=== PATIENT | female | born 1945 | race American Indian/Alaskan Native ===

== ENCOUNTER 2016-12-24 11:17 | Emergency (ER) | payer MEDICARE ==
--- NOTE | 2016-12-24 16:33 | Emergency Department Report ---
ED Back Pain/Injury HPI - General Chief Complaint: Back Pain/Injury Stated Complaint: BACK PAIN Time Seen by Provider: 12/24/16 16:22 Source: patient Limitations: No Limitations - History of Present Illness Initial Comments: Patient here complaining of pain to her lower back on the right side 3 days. She denies any injury. Denies falling. She says she's taken Tylenol at home without any relief. Denies any chest pain, shortness of breath, nausea or vomiting. She says she was seen by her primary care and was advised that she has osteoarthritis. Patient denies any fever or chills. Denies any abdominal pain. Pain is located on the right side of her lower back should she reports pain is achy 10 out of 10 and constant. Denies any urinary burning or urgency but reports urinary frequency. MD Complaint: back pain Onset/Timin -: days(s) Similar Symptoms Previously: Yes Place: home Radiation: flank (rt) Severity: moderate Severity scale (0 -10): 7 Quality: aching Consistency: constant Improves With: none Worsens With: none Context: other (none) Associated Symptoms: denies: confusion, weakness, chest pain, numbness, difficulty walking, cough, difficulty urinating, diaphoresis, incontinence, fever/chills, constipation, headaches, abdominal pain, loss of appetite, malaise , nausea/vomiting, rash, seizure, shortness of breath, syncope Treatments Prior to Arrival: acetaminophen - Related Data Home Medications Medication Instructions Recorded Confirmed Last Taken Aspirin [Aspirin BABY CHEW TAB] 81 mg PO QDAY 07/16/14 02/23/16 02/22/16 81 MG Atorvastatin [Lipitor] 80 mg PO QHS 07/16/14 02/23/16 02/22/16 80 MG Clopidogrel [Plavix] 75 mg PO QDAY 07/16/14 02/23/16 02/22/16 75 MG Lisinopril [Zestril TAB] 20 mg PO QDAY 07/16/14 02/23/16 02/22/16 20 MG Metoprolol [Lopressor TAB] 25 mg PO DAILY 07/16/14 02/23/16 02/22/16 25 MG Previous Rx's Medication Instructions Recorded Last Taken Type Pantoprazole [Protonix TAB] 20 mg PO BID #60 tablet. 02/24/16 Unknown Rx Acetaminophen/Codeine [Tylenol #3] 1 tab PO Q6H PRN #12 tab 12/24/16 Unknown Rx Ciprofloxacin HCl [Ciprofloxacin 500 mg PO Q12H #20 tab 12/24/16 Unknown Rx TAB] Allergies Allergy/AdvReac Type Severity Reaction Status Date / Time erythromycin base Allergy Hives Verified 02/23/16 11:29 [Erythromycin Base] Penicillins Allergy Hives Verified 02/23/16 11:29 ED Review of Systems ROS: Stated complaint: BACK PAIN Other details as noted in HPI Comment: All other systems reviewed and negative Constitutional: denies: chills, fever Respiratory: no symptoms reported Cardiovascular: denies: chest pain, palpitations, edema, syncope Gastrointestinal: denies: abdominal pain, nausea, vomiting Genitourinary: frequency. denies: urgency, dysuria, hematuria, discharge Musculoskeletal: back pain. denies: arthralgia Skin: denies: rash Neurological: denies: headache ED Past Medical Hx - Past Medical History Previous Medical History?: Yes Hx Hypertension: Yes Hx Heart Attack/AMI: No Hx Congestive Heart Failure: No Hx Diabetes: No Hx Arthritis: Yes (generalized) Hx Seizures: Yes Hx COPD: No Additional medical history: PAD - Surgical History Past Surgical History?: Yes Additional Surgical History: both leg - Family History Family history: diabetes, hypertension - Social History Smoking Status: Former Smoker Substance Use Type: None - Medications Home Medications: Home Medications Medication Instructions Recorded Confirmed Last Taken Type Aspirin [Aspirin BABY CHEW TAB] 81 mg PO QDAY 07/16/14 02/23/16 02/22/16 History 81 MG Atorvastatin [Lipitor] 80 mg PO QHS 07/16/14 02/23/16 02/22/16 History 80 MG Clopidogrel [Plavix] 75 mg PO QDAY 07/16/14 02/23/16 02/22/16 History 75 MG Lisinopril [Zestril TAB] 20 mg PO QDAY 07/16/14 02/23/16 02/22/16 History 20 MG Metoprolol [Lopressor TAB] 25 mg PO DAILY 07/16/14 02/23/16 02/22/16 History 25 MG Pantoprazole [Protonix TAB] 20 mg PO BID #60 tablet. 02/24/16 Unknown Rx Acetaminophen/Codeine [Tylenol #3] 1 tab PO Q6H PRN #12 tab 12/24/16 Unknown Rx Ciprofloxacin HCl [Ciprofloxacin 500 mg PO Q12H #20 tab 12/24/16 Unknown Rx TAB] ED Physical Exam - General Limitations: No Limitations General appearance: alert, in no apparent distress - Head Head exam: Present: atraumatic, normocephalic, normal inspection - Eye Eye exam: Present: normal appearance, PERRL, EOMI Pupils: Present: normal accommodation - Neck Neck exam: Present: normal inspection, full ROM. Absent: tenderness, meningismus, lymphadenopathy - Respiratory Respiratory exam: Present: normal lung sounds bilaterally. Absent: respiratory distress, chest wall tenderness - Cardiovascular Cardiovascular Exam: Present: regular rate, normal rhythm, normal heart sounds - GI/Abdominal GI/Abdominal exam: Present: soft, normal bowel sounds. Absent: distended, tenderness, guarding, rebound, rigid - Extremities Exam Extremities exam: Present: normal inspection, full ROM, normal capillary refill. Absent: tenderness, pedal edema, joint swelling, calf tenderness - Back Exam Back exam: Present: normal inspection, full ROM. Absent: tenderness, CVA tenderness (R), CVA tenderness (L), muscle spasm, paraspinal tenderness, vertebral tenderness, rash noted - Expanded Back Exam Expanded Back exam: Absent: saddle anesthesia Back exam: Negative Straight Leg Raising: Left, Right - Neurological Exam Neurological exam: Present: alert, oriented X3, normal gait, reflexes normal. Absent: motor sensory deficit - Expanded Neurological Exam Expanded Neurological exam: Absent: innattentive, memory loss-remote event, memory loss- recent event, ataxia, receptive aphasia, expressive aphasia, total aphasia, tremor, protecting the airway Patient oriented to: Present: person, place, time Speech: Present: fluid speech Cranial nerves: EOM's Intact: Normal, Gag Reflex: Normal, Tongue Deviation: Normal, Nystagmus: Normal, Facial Sensation: Normal Cerebellar function: Romberg: Normal Upper motor neuron: Pronator Drift: Normal Sensory exam: Upper Extremity Light Touch: Normal, Upper Extremity Temperature: Normal, UE 2 Point Discrimination: Normal, Lower Extremity Light Touch: Normal, Lower Extremity Temperature: Normal, LE 2 Point Discrimination: Normal Motor strength exam: RUE: 5, LUE: 5, RLE: 5, LLE: 5 DTR: bicep (R): 2+, bicep (L): 2+, tricep (R): 2+, tricep (L): 2+, knee (R): 2+ , knee (L): 2+, ankle (R): 2+, ankle (L): 2+ Best Eye Response ([place]): (4) open spontaneously Best Motor Response ([place]): (6) obeys commands Best Verbal Response ([place]lias): (5) oriented [place] Total: 15 - Psychiatric Psychiatric exam: Present: normal affect, normal mood - Skin Skin exam: Present: warm, dry, intact, normal color. Absent: rash ED Course Vital Signs 12/24/16 12:08 Temperature 98.3 F Pulse Rate 66 Respiratory 20 Rate Blood Pressure 153/84 O2 Sat by Pulse 100 Oximetry - Reevaluation(s) Reevaluation #1: 12/24/16 18:31 Patient stable throughout ED stay. ED Medical Decision Making - Lab Data Lab Results 12/24/16 Range/Units 17:24 Urine Color Yellow (Yellow) Urine Turbidity Slightly-cloudy (Clear) Urine pH 5.0 (5.0-7.0) Ur Specific [place] 1.018 (1.003-1.030) Urine Protein <15 mg/dl (Negative) mg/dL Urine Glucose (UA) Neg (Negative) mg/dL Urine Ketones Neg (Negative) mg/dL Urine Blood Mod (Negative) Urine Nitrite Neg (Negative) Urine Bilirubin Neg (Negative) Urine Urobilinogen < 2.0 (<2.0) mg/dL Ur Leukocyte Esterase Lg (Negative) Urine WBC (Auto) 42.0 H (0.0-6.0) /HPF Urine RBC (Auto) 3.0 (0.0-6.0) /HPF U Epithel Cells (Auto) 6.0 (0-13.0) /HPF Urine Bacteria (Auto) 1+ (Negative) /HPF Urine Mucus Few /HPF Culture pending - Medical Decision Making ED course: I discussed the patient that her urinalysis came back that she has urinary tract infection with moderate around blood in urine. She doesn't not having any fever, nausea or vomiting. She does not have any CVA tenderness. Denies any history of kidney stone. I discussed with patient diagnosis and treatment plan and she voiced understanding. Patient discharged home with prescription for ciprofloxacin and Tylenol 3. Critical care attestation.: If time is entered above; I have spent that time in minutes in the direct care of this critically ill patient, excluding procedure time. ED Disposition Clinical Impression: Acute cystitis without hematuria Pain in lower back Qualifiers: Chronicity: acute Back pain laterality: right Sciatica presence: without sciatica Qualified Code(s): M54.5 - Low back pain Disposition: DISCHARGED TO HOME OR SELFCARE Is pt being admited?: No Does the pt Need Aspirin: No Condition: Stable Instructions: Urinary Tract Infection in Women (ED), Acute Low Back Pain (ED) Additional Instructions: Please increase her fluid intake. Take antibiotic as prescribed. Do not operate heavy machinery or drive motor vehicle while taking Tylenol No. 3 as this medication will cause drowsiness. Prescriptions: Acetaminophen/Codeine [Tylenol #3] 1 tab PO Q6H PRN #12 tab PRN Reason: Pain Ciprofloxacin HCl [Ciprofloxacin TAB] 500 mg PO Q12H #20 tab Referrals: PRIMARY CARE, [Primary Care Provider] - 3-5 Days
[2016-12-24 17:56] LABS: Bacteria,Urine 1+ /HPF (Negative); Bilirubin,Urine NEG (Negative); Blood,Urine MOD (Negative); Ketones,Urine NEG (Negative); Leukocyte Esterase,Urine LG (Negative); Mucus,Urine FEW /HPF; Nitrite,Urine NEG (Negative); Protein,Urine <15 mg/dL mg/dL (Negative); Urobilinogen,Urine < 2.0 mg/dL (<2.0)
[2016-12-24] MEDS ORDERED: TYLENOL ONE (18:38)
[2016-12-24] MEDS ORDERED: TYLENOL PO ONE (18:42)
[2016-12-24 18:53] VITALS: BP 144/89
== END 2016-12-24 18:55 | disposition home or self-care (01) ==
LOC: ED 11:17
DX: N30.00 Acute cystitis without hematuria (principal); M54.5 Low back pain; I10 Essential (primary) hypertension; M19.90 Unspecified osteoarthritis, unspecified site; Z79.82 Long term (current) use of aspirin; Z88.0 Allergy status to penicillin; Z88.8 Allergy status to other drugs, medicaments and biological substances; Z87.891 Personal history of nicotine dependence
CPT/HCPCS: 81001; 87086; 99283

== ENCOUNTER 2022-04-08 11:21 | Emergency (ER) | payer MEDICARE ==
[2022-04-08] MEDS ORDERED: LIDOCAINE VISCOUS 2% 15 ML ORAL LIQD PO ONE (11:46)
[2022-04-08] MEDS ORDERED: ACETAMINOPHEN 500 MG TAB PO ONE (11:46)
[2022-04-08] MEDS ORDERED: dexAMETHasone 20 MG/5 ML VIAL IV ONE (13:29)
[2022-04-08] MEDS ORDERED: SODIUM CHLORIDE 0.9% 1000 ML 1,000 ML IV ONE (13:35)
--- NOTE | 2022-04-08 13:40 | Emergency Department Report ---
ED General Adult HPI - General Chief complaint: Sore Throat Stated complaint: THROAT PAIN Time Seen by Provider: 04/08/22 13:34 Source: patient Mode of arrival: Ambulatory Limitations: No Limitations - History of Present Illness Initial comments: Patient 76-year-old -H[place]uran female history of hypertension, CAD, hyperlipidemia, GERD, SZ, `and arthralgia, who presents for sore throat and dysphagia x3 days with generalized chills and malaise. Symptoms started 3 days ago gradually has worsened to difficulty with speech and 8/10 dysphagia with at tempted swallowing. Patient states unable to tolerate p.o. intake. No T-max measured at home temp 100 in triage today. Symptoms are exacerbated by swallowing. Symptoms are relieved by nothing tried. Patient denies cough, no chest pain, no nausea or vomiting. No dysuria urgency or frequency. Patient states she did not take any blood pressure medications today. Severity scale (0 -10): 7 - Related Data Home Medications Medication Instructions Recorded Confirmed Last Taken Aspirin [Aspirin BABY CHEW TAB] 81 mg PO QDAY 07/16/14 02/23/16 02/22/16 81 MG Atorvastatin [Lipitor] 80 mg PO QHS 07/16/14 02/23/16 02/22/16 80 MG Clopidogrel [Plavix] 75 mg PO QDAY 07/16/14 02/23/16 02/22/16 75 MG Metoprolol [Lopressor TAB] 25 mg PO DAILY 07/16/14 02/23/16 02/22/16 25 MG lisinopriL [Zestril TAB] 20 mg PO QDAY 07/16/14 02/23/16 02/22/16 20 MG Previous Rx's Medication Instructions Recorded Last Taken Type Pantoprazole [Protonix TAB] 20 mg PO BID #60 tablet. 02/24/16 Unknown Rx Acetaminophen/Codeine [Tylenol #3] 1 tab PO Q6H PRN #12 tab 12/24/16 Unknown Rx Ciprofloxacin HCl [Ciprofloxacin 500 mg PO Q12H #20 tab 12/24/16 Unknown Rx TAB] Acetaminophen [Pain Relief] 650 mg PO Q6H PRN #30 tab 04/08/22 Unknown Rx Clindamycin [Clindamycin CAP] 300 mg PO Q6H 7 Days #28 cap 04/08/22 Unknown Rx Nystas/Diphen/Xyl Visc/Mylanta 15 ml MM Q6H PRN #480 ml 04/08/22 Unknown Rx [Magic Mouthwash] dexAMETHasone [Decadron] 4 mg PO BID 5 Days #10 tablet 04/08/22 Unknown Rx Allergies Allergy/AdvReac Type Severity Reaction Status Date / Time erythromycin base Allergy Hives Verified 02/23/16 11:29 [Erythromycin Base] Penicillins Allergy Hives Verified 02/23/16 11:29 ED Review of Systems ROS: Stated complaint: THROAT PAIN Other details as noted in HPI Constitutional: chills, fever, malaise Eyes: denies: eye pain, eye discharge, vision change ENT: throat pain, congestion. denies: ear pain Respiratory: denies: cough, shortness of breath, wheezing Cardiovascular: denies: chest pain, palpitations Endocrine: no symptoms reported Gastrointestinal: denies: abdominal pain, nausea, vomiting, diarrhea Genitourinary: denies: urgency, dysuria, discharge Musculoskeletal: denies: back pain, joint swelling, arthralgia Skin: denies: rash, lesions Neurological: denies: headache, weakness, paresthesias, vertigo Psychiatric: denies: anxiety, depression Hematological/Lymphatic: denies: easy bleeding, easy bruising ED Past Medical Hx - Past Medical History Previous Medical History?: Yes Hx Hypertension: Yes Hx Heart Attack/AMI: No Hx Congestive Heart Failure: No Hx Diabetes: No Hx Arthritis: Yes (generalized) Hx Seizures: Yes Hx COPD: No Additional medical history: PAD - Surgical History Past Surgical History?: Yes Additional Surgical History: both leg - Social History Smoking Status: Former Smoker Substance Use Type: None - Medications Home Medications: Home Medications Medication Instructions Recorded Confirmed Last Taken Type Aspirin [Aspirin BABY CHEW TAB] 81 mg PO QDAY 07/16/14 02/23/16 02/22/16 History 81 MG Atorvastatin [Lipitor] 80 mg PO QHS 07/16/14 02/23/16 02/22/16 History 80 MG Clopidogrel [Plavix] 75 mg PO QDAY 07/16/14 02/23/16 02/22/16 History 75 MG Metoprolol [Lopressor TAB] 25 mg PO DAILY 07/16/14 02/23/16 02/22/16 History 25 MG lisinopriL [Zestril TAB] 20 mg PO QDAY 07/16/14 02/23/16 02/22/16 History 20 MG Pantoprazole [Protonix TAB] 20 mg PO BID #60 tablet. 02/24/16 Unknown Rx Acetaminophen/Codeine [Tylenol #3] 1 tab PO Q6H PRN #12 tab 12/24/16 Unknown Rx Ciprofloxacin HCl [Ciprofloxacin 500 mg PO Q12H #20 tab 12/24/16 Unknown Rx TAB] Acetaminophen [Pain Relief] 650 mg PO Q6H PRN #30 tab 04/08/22 Unknown Rx Clindamycin [Clindamycin CAP] 300 mg PO Q6H 7 Days #28 cap 04/08/22 Unknown Rx Nystas/Diphen/Xyl Visc/Mylanta 15 ml MM Q6H PRN #480 ml 04/08/22 Unknown Rx [Magic Mouthwash] dexAMETHasone [Decadron] 4 mg PO BID 5 Days #10 tablet 04/08/22 Unknown Rx ED Physical Exam - General Limitations: No Limitations General appearance: alert, in no apparent distress - Head Head exam: Present: normocephalic, normal inspection - Eye Eye exam: Present: EOMI Pupils: Present: normal accommodation - ENT ENT exam: Present: mucous membranes moist, TM's normal bilaterally, normal external ear exam - Expanded ENT Exam Expanded Throat exam: Positive: tonsillar erythema, tonsillomegaly, tonsillar exudate, other (Moderate swelling erythema pain to touch). Negative: R peritonsillar mass, L peritonsillar mass - Neck Neck exam: Present: tenderness, full ROM, lymphadenopathy. Absent: meningismus, thyromegaly - Respiratory Respiratory exam: Present: normal lung sounds bilaterally. Absent: respiratory distress, wheezes, stridor, chest wall tenderness - Cardiovascular Cardiovascular Exam: Present: normal rhythm, tachycardia, normal heart sounds. Absent: systolic murmur, diastolic murmur, rubs, gallop - GI/Abdominal GI/Abdominal exam: Present: soft, tenderness, normal bowel sounds ED Course Vital Signs 04/08/22 11:39 Temperature 100.3 F H Pulse Rate 115 H Respiratory 16 Rate Blood Pressure 143/95 [Left] O2 Sat by Pulse 97 Oximetry Patient treated with clindamycin 900 mg IV piggyback, Decadron 10 mg IV, Tylenol p.o., normal saline 1 L x 1. Patient now speaking in full sentences. States hot potato voice is resolved, advises pain improved to 2/10 from 7/10. There is no fevers no chills no rigors no nausea or vomiting patient is tolerating p.o. liquids at this time without symptoms. ED Medical Decision Making - Lab Data Result diagrams: 04/08/22 14:06 04/08/22 14:06 Labs 04/08/22 04/08/22 04/08/22 14:06 14:06 14:06 WBC 8.8 RBC 4.57 Hgb 12.9 Hct 39.6 MCV 87 MCH 28 MCHC 33 RDW 14.9 Plt Count 296 Lymph % (Auto) 33.7 Wright % (Auto) 9.8 H Eos % (Auto) 0.2 Baso % (Auto) 1.4 Lymph # (Auto) 3.0 Wright # (Auto) 0.9 H Eos # (Auto) 0.0 Baso # (Auto) 0.1 Seg Neutrophils % 54.9 Seg Neutrophils # 4.8 Sodium 138 Potassium 4.1 Chloride 100.3 Carbon Dioxide 25 Anion Gap 17 BUN 9 Creatinine 1.0 Estimated GFR > 60 BUN/Creatinine Ratio 9 Glucose 102 H Lactic Acid 1.80 Calcium 9.9 Total Bilirubin 1.00 AST 16 ALT 10 Alkaline Phosphatase 121 Troponin T Total Protein 9.0 H Albumin 4.5 Albumin/Globulin Ratio 1.0 04/08/22 14:06 WBC RBC Hgb Hct MCV MCH MCHC RDW Plt Count Lymph % (Auto) Wright % (Auto) Eos % (Auto) Baso % (Auto) Lymph # (Auto) Wright # (Auto) Eos # (Auto) Baso # (Auto) Seg Neutrophils % Seg Neutrophils # Sodium Potassium Chloride Carbon Dioxide Anion Gap BUN Creatinine Estimated GFR BUN/Creatinine Ratio Glucose Lactic Acid Calcium Total Bilirubin AST ALT Alkaline Phosphatase Troponin T < 0.010 Total Protein Albumin Albumin/Globulin Ratio - Radiology Data Radiology results: report reviewed, image reviewed CHEST 2 VIEWS INDICATION / CLINICAL INFORMATION: fever cough. COMPARISON: None available. FINDINGS: SUPPORT DEVICES: None. HEART / MEDIASTINUM: No significant abnormality. LUNGS / PLEURA: No significant pulmonary or pleural abnormality. No pneumothorax. ADDITIONAL FINDINGS: No significant additional findings. IMPRESSION: 1. No acute findings. Signer Name: Saturnino Rodriguez MD Signed: 04/08/2022 2:01 PM Workstation Name: [id number] Transcribed By: SB Dictated By: SATURNINO RODRIGUEZ MD Electronically Authenticated By: SATURNINO RODRIGUEZ MD Signed Date/Time: 04/08/221400 DD/ 00 TD/TT: CT NECK WITH CONTRAST HISTORY: Neck pain for 3 days; "unable to talk" COMPARISON: None. TECHNIQUE: Routine CT of the neck is performed following intravenous contrast. All CT scans at this location are performed using CT dose reduction for ALARA by means of automated exposure control CONTRAST: 80 mL Omnipaque 300 FINDINGS: Oral cavity: Soft tissue swelling at the level of right partial tonsil; in the medial inferior part of the enlarged right tonsillar fossa, approximately 12 mm sized low attenuation area with faint rim of enhancement; contained within the superior constrictor muscle; no extension into the principal technologist space and parapharyngeal space; effusion in the retropharyngeal space Larynx: In the right supraglottic larynx, low attenuation lesion along the ri ght aryepiglottic fold markedly displacing the airway towards the left side; paralaryngeal space nor mal; the lesion in the right supraglottic larynx could be extension from the right tonsillar abscess. Skull Base: No significant abnormality. Parotid, Carotid, Prevertebral, Pharyngeal Mucosal, and Administrative Assistant Coordinator Spaces: No abnormal mass, enhancing lesion or other significant abnormality. Airway: Narrowed more cavity and in the supraglottic larynx; but still patent Lymphatics: Reactive level 2 adenopathy Vasculature: Internal jugular veins normal; dense calcification in the left car otid bifurcation Osseous Structures: No significant abnormality Additional findings: None. IMPRESSION: Approximately 12 mm sized lesion in the right faucial tonsil; tonsillar abscess Effusion in the retropharyngeal space Low-attenuation lesion in the right supraglottic larynx around the area epiglottic fold displacing the airway Extension of the tonsillar abscess Considering the age, possibility of tumor considered; but no definite findings to suggest tumor in the larynx Findings here have to be followed closely. Signer Name: Andrez Whitfield MD Signed: 04/08/2022 6:30 PM Workstation Name: [id number] Transcribed By: BS Dictated By: Andrez Fish MD Electronically Authenticated By: Andrez Fish MD Signed Date/Time: 04/08/221829 DD/ 46 TD/TT: Print Cancel - Medical Decision Making Patient 76-year-old -[place] female history of hypertension, CAD, hyperlipidemia, GERD, SZ, `and arthralgia, who presents for sore throat and dysphagia x3 days with generalized chills and malaise. Symptoms started 3 days ago gradually has worsened to difficulty with speech and 8/10 dysphagia with attempted swallowing. Patient states unable to tolerate p.o. intake. No T-max measured at home temp 100 in triage today. Symptoms are exacerbated by swallowing. Symptoms are relieved by nothing tried. Patient denies cough, no chest pain, no nausea or vomiting. No dysuria urgency or frequency. Patient states she did not take any blood pressure medications today. Patient treated with clindamycin 900 mg IV piggyback, Decadron 10 mg IV, Tylenol p.o., normal saline 1 L x 1. Patient now speaking in full sentences. States hot potato voice is resolved, advises pain improved to 2/10 from 7/10. There is no fevers no chills no rigors no nausea or vomiting patient is tolerating p.o. liquids at this time without symptoms. Chest x-ray normal no infiltrates no opacities, labs noted above nonactionable , plan DC to home with prescriptions clindamycin, Decadron, Tylenol as needed pain, Magic mouthwash, follow-up with ENT in 1 to 2 days. Patient and family member verbalized agreement understanding with same we will call in a.m. to confirm follow up appointment., Patient currently alert oriented x3 patient is tolerating p.o. intake without nausea vomiting no aspiration. Lung sounds are clear throughout airway is patent. Patient DC'd in stable condition. CT: soft tiss neck with contrast: See results as above peritonsillar abscess versus pharyngeal lesions. Airway remains patent there is no stridor no wheezing. Patient has eaten dinner and is tolerating p.o. liquids without symptoms at this timeb, patient declines ENT consult declines discussion on admission, advises will only follow-up outpatient if she will not be admitted. Patient alert oriented x3. Patient demonstrates sound decision-making capacity, adult grandson accompanies patient who endorses patient is at baseline mentation. Patient has had opportunity and ask and I have answered all her questions to her satisfaction regarding diagnosis and need for close follow-up w ith ENT and strict instructions to return should she not be able to tolerate p.o. intake or difficulty in breathing. Critical care attestation.: If time is entered above; I have spent that time in minutes in the direct care of this critically ill patient, excluding procedure time. ED Disposition Clinical Impression: Acute bacterial tonsillitis Disposition: HOME / SELF CARE / HOMELESS Is pt being admited?: No Does the pt Need Aspirin: No Condition: Stable Instructions: Tonsillitis Additional Instructions: Take medication as prescribed, follow-up with the ear nose and throat doctor in 1 to 2 days. Call tomorrow to confirm appointment. Return to emergency department should symptoms worsen or unable to tolerate food by mouth. Prescriptions: Clindamycin [Clindamycin CAP] 300 mg PO Q6H 7 Days #28 cap dexAMETHasone [Decadron] 4 mg PO BID 5 Days #10 tablet Nystas/Diphen/Xyl Visc/Mylanta [Magic Mouthwash] 15 ml MM Q6H PRN #480 ml PRN Reason: pain Acetaminophen [Pain Relief] 650 mg PO Q6H PRN #30 tab PRN Reason: Pain and fever Referrals: TRISH RHODES MD [Staff Physician] - 3-5 Days JUANITO WILDER MD [Staff Physician] - [facility] (call in am to confirm appointment )
--- NOTE | 2022-04-08 14:05 | XRay Report ---
CHEST 2 VIEWS INDICATION / CLINICAL INFORMATION: fever cough. COMPARISON: None available. FINDINGS: SUPPORT DEVICES: None. HEART / MEDIASTINUM: No significant abnormality. LUNGS / PLEURA: No significant pulmonary or pleural abnormality. No pneumothorax. ADDITIONAL FINDINGS: No significant additional findings. IMPRESSION: 1. No acute findings. Signer Name: Saturnino Rodriguez MD Signed: 04/08/2022 2:01 PM Workstation Name: [id number]
[2022-04-08 14:38] LABS: Basophils # (Auto) 0.1 K/mm3 (0.0-0.1); Basophils % (Auto) 1.4 % (0.0-1.8); Eosinophils % (Auto) 0.2 % (0.0-4.3); Hematocrit 39.6 % (30.3-42.9); Hemoglobin 12.9 gm/dl (10.1-14.3); Lymphocytes % (Auto) 33.7 % (13.4-35.0); Mean Corpuscular HGB Conc 33 % (30-34); Mean Corpuscular Volume 87 fl (79-97); Monocytes # (Auto) 0.9 K/mm3 (0.0-0.8); Monocytes % (Auto) 9.8 % (0.0-7.3); Platelet Count 296 K/mm3 (140-440); Red Blood Count 4.57 M/mm3 (3.65-5.03); Red Cell Distribution Width 14.9 % (13.2-15.2)
[2022-04-08] MEDS ORDERED: dexAMETHasone 4 MG/ML VIAL ONE ×2 (15:35→15:36)
[2022-04-08 16:57] LABS: Alanine Aminotransferase 10 units/L (7-56); Albumin 4.5 g/dL (3.9-5); BUN/Creatinine Ratio 9; Blood Urea Nitrogen 9 mg/dL (7-17); Calcium 9.9 mg/dL (8.4-10.2); Hemolysis Index 2
--- NOTE | 2022-04-08 18:34 | Cat Scan Report ---
CT NECK WITH CONTRAST HISTORY: Neck pain for 3 days; "unable to talk" COMPARISON: None. TECHNIQUE: Routine CT of the neck is performed following intravenous contrast. All CT scans at this [facility] are performed using CT dose reduction for ALARA by means of automated exposure control CONTRAST: 80 mL Omnipaque 300 FINDINGS: Oral cavity: Soft tissue swelling at the level of right partial tonsil; in the medial inferior part o f the enlarged right tonsillar fossa, approximately 12 mm sized low attenuation area with faint rim o f enhancement; contained within the superior constrictor muscle; no extension into the [place] man [employer] ce and parapharyngeal space; effusion in the retropharyngeal space Larynx: In the right supraglottic larynx, low attenuation lesion along the right aryepiglottic fold m arkedly displacing the airway towards the left side; paralaryngeal space normal; the lesion in the ri ght supraglottic larynx could be extension from the right tonsillar abscess. Skull Base: No significant abnormality. Parotid, Carotid, Prevertebral, Pharyngeal Mucosal, and Skidder Loader Spaces: No abnormal mass, enhancin g lesion or other significant abnormality. Airway: Narrowed more cavity and in the supraglottic larynx; but still patent Lymphatics: Reactive level 2 adenopathy Vasculature: Internal jugular veins normal; dense calcification in the left carotid bifurcation Osseous Structures: No significant abnormality Additional findings: None. IMPRESSION: Approximately 12 mm sized lesion in the right faucial tonsil; tonsillar abscess Effusion in the retropharyngeal space Low-attenuation lesion in the right supraglottic larynx around the area epiglottic fold displacing th e airway Extension of the tonsillar abscess Considering the age, possibility of tumor considered; but no definite findings to suggest tumor in th e larynx Findings here have to be followed closely. Signer Name: Andrez Whitfield MD Signed: 04/08/2022 6:30 PM Workstation Name: [id number]
[2022-04-08 19:30] VITALS: BP 137/86
== END 2022-04-08 19:31 | disposition home or self-care (01) ==
LOC: ED 11:21
DX: J03.80 Acute tonsillitis due to other specified organisms (principal); B96.89 Other specified bacterial agents as the cause of diseases classified elsewhere; I10 Essential (primary) hypertension; M19.90 Unspecified osteoarthritis, unspecified site; R56.9 Unspecified convulsions; Z98.890 Other specified postprocedural states; Z87.891 Personal history of nicotine dependence; Z88.0 Allergy status to penicillin; Z91.09 Other allergy status, other than to drugs and biological substances; Z79.899 Other long term (current) drug therapy
CPT/HCPCS: 36415; 70491; 71046; 80053; 82140; 84484; 85025; 87040; 96365; 96375; 99284; J1100; J7030; J7502; Q9967

== ENCOUNTER 2022-05-07 07:38 | Emergency (ER) | payer MEDICARE ==
[2022-05-07 08:07] VITALS: BP 120/86
[2022-05-07 08:45] LABS: Basophils # (Auto) 0.1 K/mm3 (0.0-0.1); Basophils % (Auto) 0.5 % (0.0-1.8); Eosinophils % (Auto) 0.1 % (0.0-4.3); Hematocrit 40.1 % (30.3-42.9); Hemoglobin 12.7 gm/dl (10.1-14.3); Lymphocytes # (Auto) 1.7 K/mm3 (1.2-5.4); Lymphocytes % (Auto) 15.5 % (13.4-35.0); Mean Corpuscular HGB Conc 32 % (30-34); Mean Corpuscular Volume 89 fl (79-97); Monocytes # (Auto) 0.6 K/mm3 (0.0-0.8); Monocytes % (Auto) 5.3 % (0.0-7.3)
[2022-05-07 09:23] LABS: Alanine Aminotransferase 11 units/L (7-56); Albumin 3.4 g/dL (3.9-5); BUN/Creatinine Ratio 9; Blood Urea Nitrogen 9 mg/dL (7-17); Calcium 9.3 mg/dL (8.4-10.2); Hemolysis Index 77
[2022-05-07 10:03] LABS: Mean Platelet Volume 8.4 fl (6-12); Platelet Count 103 K/mm3 (140-440)
--- NOTE | 2022-05-08 08:28 | Electrocardiograph Report ---
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
== END 2022-05-07 09:00 | disposition left against medical advice (07) ==
LOC: ED 07:38
DX: R10.9 Unspecified abdominal pain (principal); R51.9 Headache, unspecified; Z53.21 Procedure and treatment not carried out due to patient leaving prior to being seen by health care provider
CPT/HCPCS: 36415; 80053; 83690; 85025; 93005

== ENCOUNTER 2022-05-08 11:40 | Emergency (ER) | payer MEDICARE | END 2022-05-09 02:31 | disposition left against medical advice (07) | LOC: ED 11:40 | DX: R51.9 Headache, unspecified (principal); Z53.21 Procedure and treatment not carried out due to patient leaving prior to being seen by health care provider ==